=== PATIENT | male | born 1995 | race Two or more races ===

== ENCOUNTER 2020-04-21 02:13 | Emergency (ER) | payer OTHER ==
[~2020-04-21] VITALS: Ht 177.8 cm; Wt 65.8 kg
--- NOTE | 2020-04-21 02:28 | NUR ---
BIBRA 61, "PASSED OUT IN UBER" UNKNOWN SUBSTANCE USED. +NV GIVEN IV ZOFRAN. PT AOX1 AT THIS TIME. WHEN ASKED FURTHER QUESTIONS, PT WENT BACK TO SLEEP. RR EVEN AND UNLABORED. NO SOB NOTED. NO ACTIVE NVD AT THIS TIME. PT GOWNED AND PLACED ON MONITOR. PER RA PLACED IV ON LAC18 INTACT AND PATENT. NO S/S INFECTION OR INFILTRATION. PT WAITING FOR MD RAMIREZ.
--- NOTE | 2020-04-21 02:40 | NUR ---
URINE COLLECTED AND SENT TO LAB
--- NOTE | 2020-04-21 02:40 | NUR ---
DR HORTA AT BEDSIDE FOR EVAL
--- NOTE | 2020-04-21 02:40 | NUR ---
PT ADMITS TO TAKING GHB, HX OF ASTHMA.
[2020-04-21 02:43] LABS: BASOPHILS % (AUTO) 0.4 % (0.0-2.0); HEMATOCRIT 39 % (39-51); HEMOGLOBIN 13.2 g/dL (13.5-17.5); LYMPHOCYTES % (AUTO) 10.3 % (20.0-44.0); MEAN CORPUSCULAR HGB CONC 34 g/dl (31.0-36.0); MEAN CORPUSCULAR VOLUME 94 fL (80-96); MONOCYTES # (AUTO) 0.8 /CMM (0.1-1.30); MONOCYTES % (AUTO) 8.1 % (2.0-12.0); NEUTROPHILS # (AUTO) 7.5 /CMM (1.8-8.9); NEUTROPHILS % (AUTO) 81.2 % (43.0-81.0); PLATELET COUNT (AUTO) 216 /CMM (150-450); RED BLOOD CELL COUNT(AUTO) 4.12 MIL/uL (4.5-6.0); WHITE BLOOD COUNT (AUTO) 9.2 K/uL (4.3-11.0)
[2020-04-21 02:44] LABS: APPEARANCE,URINE CLEAR (CLEAR); BILIRUBIN,URINE NEGATIVE (NEGATIVE); BLOOD, URINE NEGATIVE Ery/uL (NEGATIVE); COLOR,URINE YELLOW (YELLOW); KETONES,URINE 40 (NEGATIVE); LEUKOCYTE ESTERASE ,URINE NEGATIVE (NEGATIVE); NITRITE, URINE NEGATIVE (NEGATIVE); PROTEIN,URINE NEGATIVE (NEGATIVE); UGLUCOSE NEGATIVE (NEGATIVE)
[2020-04-21 02:49] LABS: BACTERIA,URINE Few /HPF (None Seen); RBC,URINE 0-2 /HPF (0-2); SQUAMOUS EPITHELIAL CELL,UR Moderate /HPF (None Seen)
[2020-04-21 02:50] LABS: CALCIUM, SERUM 9.2 mg/dL (8.5-10.1); CARBON DIOXIDE 29 mmol/L (21-32); CHLORIDE 101 mmol/L (98-107); GLUCOSE 118 mg/dL (74-106); POTASSIUM 3.4 mmol/L (3.5-5.1); SODIUM SERUM 140 mmol/L (136-145); UREA NITROGEN, BLOOD 10 mg/dL (7-18)
[2020-04-21 02:56] LABS: ALANINE AMINOTRANSFERASE 17 U/L (12-78); ALBUMIN 4.4 g/dL (3.4-5.0); ALKALINE PHOSPHATASE 90 U/L (46-116); ASPARTATE AMINOTRANSFERASE 12 U/L (15-37); BILIRUBIN,DIRECT 0.2 mg/dL (0.0-0.2); BILIRUBIN,TOTAL 0.7 mg/dL (0.2-1.0); TOTAL PROTEIN, SERUM 7.9 g/dL (6.4-8.2)
[2020-04-21 02:59] LABS: ACETAMINOPHEN 0 ug/ml (10-30); ALCOHOL, BLOOD < 3 mg/dL (0-0); SALICYLATE 1.4 mg/dL (2.8-20.0)
--- NOTE | 2020-04-21 03:00 | NUR ---
KEVIN, FRIEND: [phone]
--- NOTE | 2020-04-21 04:41 | NUR ---
PT PASSED ROAD TEST, STEADY GAIT IN HEELS. DR. HORTA AWARE
[2020-04-21 04:46] VITALS: BP 127/84
--- NOTE | 2020-04-21 04:46 | NUR ---
Patient discharged to home in stable condition. Written and verbal after care instructions given. Patient verbalizes understanding of instruction. ambulatory with a steady gait
== END 2020-04-21 04:47 | disposition home or self-care (01) ==
LOC: ER 02:15
DX: T45.0X1A Poisoning by antiallergic and antiemetic drugs, accidental (unintentional), initial encounter (principal); R11.10 Vomiting, unspecified; R41.82 Altered mental status, unspecified; Z88.0 Allergy status to penicillin; Y92.89 Other specified places as the place of occurrence of the external cause
CPT/HCPCS: 36415; 80048; 80076; 80305; 80307; 80329; 81001; 85025; 87086; 99283; G0480; 81000-TC